=== PATIENT | male | born 1965 | race Caucasian/White ===

== ENCOUNTER → 2021-09-22 | Outpatient (CLI) | payer OTHER ==
[2021-09-22 10:19] VITALS: BP 153/103
== END ==
LOC: CARD 10:00
PROVIDERS: ATTEND Nurse Practitioner Family
DX: I25.10 Atherosclerotic heart disease of native coronary artery without angina pectoris (principal)
CPT/HCPCS: 93017

== ENCOUNTER 2021-12-26 14:10 | Emergency (ER) | payer OTHER ==
[~2021-12-26] VITALS: Ht 183 cm; Wt 118.0 kg
--- NOTE | 2021-12-26 14:51 | ED Syncope ---
General Chief Complaint: Neuro-Stroke Like Symptoms Stated Complaint: STROKE LIKE SYMPTOMS Nursing Triage Note: PT TO ER BY EMS BROUGHT STRAIGHT TO CT WITH CC OF STROKE S/S. PT FELL AT HOME WITH RT SIDE WEAKNESS, SLURRED SPEECH AND CONFUSION. EMS STATED S/S WERE GETTING BETTER IN ROUTE. LAST KNOWN WELL 1330. SAME THING HAPPENED 2 WKS AGO BUT PT WAS NOT CHECKED OUT. HX OF HYPERTENSION AND AMI WITH 2 STENTS. BRUISE ON FOREHAED THAT WAS NOT THERE PRIOR TO FALL TODAY. Source of Information: Patient Exam Limitations: No Limitations History of Present Illness Date Seen by Provider: Dec 26, 2021 Time Seen by Provider: 14:30 Initial Comments Patient is a 56-year-old who presents to the emergency department by ambulance today after syncopal episode at home. Patient according to EMS was found at home after having fallen. He lives with his mother. She heard him fall and immediately called the ambulance. Unknown length of time of unconsciousness however when EMS arrived they found complete right hemiparesis and significant right-sided facial droop. He had dysarthria on arrival but these symptoms improved to resolution prior to the time he got to the emergency department. No prior history of stroke. The patient had acute IN in 2014 with subsequent stent placement. He is a patient of Dr. Degroot. He denies any antecedent symptoms. He cannot recall exactly what he was doing just prior to this event. He does state that he had a syncopal episode about a month ago possibly but he did not seek medical attention at that time. He denies headache, vision changes, speech difficulty or swallowing difficulty. No current unilateral weakness, numbness or tingling. No loss of bowel or bladder function. No pain is reported. No recent fevers, chills, cough or congestion. No GI or complaints. No rashes, joint pain or swelling. He states that for the past "couple of years" he has noticed when he walks he tends to walk to the right side. He states he has mentioned this to doctors but nobody has evaluated it. No unexplained weight loss or weight gain, no night sweats. Patient is not a diabetic. His only medications are for heart disease. Former smoker, quit in 2015. Admits to marijuana use daily. All other review of systems reviewed and negative except as stated. (patient later voiced concerns about possible prostate issues, he is concerned about some rash and swelling in the groin as well). Timing/Prior Episodes: Recent History Symptoms Prior to Episode: Unknown Precipitating Factors: Other (unknown) Current Symptoms: Back to Normal Allergies and Home Medications Patient Home Medication List Home Medication List Reviewed: Yes Review of Systems Constitutional: see HPI EENTM: no symptoms reported Respiratory: no symptoms reported Cardiovascular: no symptoms reported Gastrointestinal: other (occasionally has blood when he wipes after BM) Musculoskeletal: no symptoms reported Skin: no symptoms reported Psychiatric/Neurological: Other (reports "walking to the right") All Other Systems Reviewed Negative Unless Noted: Yes Physical Exam Vital Signs Vital Signs - First Documented 12/26/21 14:35 Temp 36.9 Pulse 97 Resp 20 B/P (MAP) 137/60 (85) Pulse Ox 92 O2 Delivery Room Air Capillary Refill : Less Than 3 Seconds Height, Weight, BMI Height: '" Weight: lbs. oz. kg; 35.00 BMI Method: General Appearance: No Apparent Distress, WD/WN HEENT: PERRL/EOMI, TMs Normal, Normal ENT Inspection, Pharynx Normal, Moist Mucous Membranes Neck: Full Range of Motion, Normal Inspection, Non Tender Cardiovascular: Regular Rate, Rhythm, Normal Peripheral Pulses Respiratory: Lungs Clear, Normal Breath Sounds, No Accessory Muscle Use, No Respiratory Distress Gastrointestinal: Normal Bowel Sounds, Non Tender, Soft Extremities: Normal Capillary Refill, Normal Inspection, Normal Range of Motion, Non Tender, No Calf Tenderness Neurologic/Psychiatric: Alert, Oriented x3, No Motor/Sensory Deficits, Normal Mood/Affect, director pharmacovigilance II-XII Norm as Tested; No EOM Palsy, No Facial Droop Cranial Nerves: Normal Hearing, Normal Speech, PERRL Coordination/Gait: Normal Finger to Nose, Negative Romberg's Sign, Other (gait not tested) Motor/Sensory: No Motor Deficit, No Sensory Deficit, No Pronator Drift Skin: Normal Color, Warm/Dry, Other (ecchymoses/contusion - mid forehead) Progress/Results/Core Measures Results/Orders Lab Results Laboratory Tests Test 12/26/21 14:39 12/26/21 14:40 Range/Units Glucometer 121 H 70-110 MG/DL White Blood Count 6.9 4.3-11.0 10^3/uL Red Blood Count 4.20 L 4.30-5.52 10^6/uL Hemoglobin 12.7 L 13.3-17.7 g/dL Hematocrit 37 L 40-54 % Mean Corpuscular Volume 87 80-99 fL Mean Corpuscular Hemoglobin 30 25-34 pg Mean Corpuscular Hemoglobin Concent 35 32-36 g/dL Red Cell Distribution Width 12.4 10.0-14.5 % Platelet Count 210 130-400 10^3/uL Mean Platelet Volume 8.9 L 9.0-12.2 fL Immature Granulocyte % (Auto) 0 % Neutrophils (%) (Auto) 61 42-75 % Lymphocytes (%) (Auto) 25 12-44 % Monocytes (%) (Auto) 9 0-12 % Eosinophils (%) (Auto) 4 0-10 % Basophils (%) (Auto) 1 0-10 % Neutrophils # (Auto) 4.2 1.8-7.8 X 10^3 Lymphocytes # (Auto) 1.7 1.0-4.0 X 10^3 Monocytes # (Auto) 0.6 0.0-1.0 X 10^3 Eosinophils # (Auto) 0.3 0.0-0.3 10^3/uL Basophils # (Auto) 0.1 0.0-0.1 10^3/uL Immature Granulocyte # (Auto) 0.0 0.0-0.1 10^3/uL Prothrombin Time 13.7 12.2-14.7 SEC INR Comment 1.0 0.8-1.4 Activated Partial Thromboplast Time 26 24-35 SEC D-Dimer 0.34 0.00-0.49 UG/ML Sodium Level 139 135-145 MMOL/L Potassium Level 3.6 3.6-5.0 MMOL/L Chloride Level 104 98-107 MMOL/L Carbon Dioxide Level 24 21-32 MMOL/L Anion Gap 11 5-14 MMOL/L Blood Urea Nitrogen 12 7-18 MG/DL Creatinine 1.11 0.60-1.30 MG/DL Estimat Glomerular Filtration Rate 78 BUN/Creatinine Ratio 11 Glucose Level 128 H 70-105 MG/DL Calcium Level 9.0 8.5-10.1 MG/DL Corrected Calcium 9.0 8.5-10.1 MG/DL Total Bilirubin 0.9 0.1-1.0 MG/DL Aspartate Amino Transf (AST/SGOT) 21 5-34 U/L Alanine Aminotransferase (ALT/SGPT) 28 0-55 U/L Alkaline Phosphatase 70 40-136 U/L Troponin I < 0.028 <0.028 NG/ML Total Protein 6.9 6.4-8.2 GM/DL Albumin 4.0 3.2-4.5 GM/DL My Orders Orders - TRINY GARCIA MD Cbc With Automated Diff (12/26/21 14:25) Protime With Inr (12/26/21 14:25) Partial Thromboplastin Time (12/26/21 14:25) Comprehensive Metabolic Panel (12/26/21 14:25) Fibrin Degradation Products (12/26/21 14:25) Troponin I Agatha (12/26/21 14:25) Ua Culture If Indicated (12/26/21 14:25) Chest 1 View, Ap/Pa Only (12/26/21 14:25) Ekg Tracing (12/26/21 14:25) Nothing By Mouth (12/26/21 Lunch) Accucheck Stat ONCE (12/26/21 14:25) Ed Iv/Invasive Line Start (12/26/21 14:25) Ed Iv/Invasive Line Start (12/26/21 14:25) Vital Signs Stroke Patient Q15M (12/26/21 14:25) Ct Head Wo-R/O Stroke (12/26/21 14:25) O2 (12/26/21 14:25) Intake & Output 06,14,22 (12/26/21 14:25) Monitor-Rhythm Ecg Trace Only (12/26/21 14:25) Dysphagia Screening Tool Q10MX1 (12/26/21 14:25) Post Thrombolytic Adminstratio (12/26/21 14:25) Lipid Panel (12/27/21 06:00) Vital Signs/I&O 12/26/21 14:35 Temp 36.9 Pulse 97 Resp 20 B/P (MAP) 137/60 (85) Pulse Ox 92 O2 Delivery Room Air Blood Pressure Mean: 85 Progress Progress Note : Time: 15:49 Progress Note Patient advised of the findings on his CAT scan as well as all of his laboratory results. 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 He chose to make a phone call and discuss things with his mother. Nurse advised me a short while later that the patient was willing to be transferred for further evaluation. I called [facility] in [place] and spoke with Dr. Paulo Andrade with neurosurgery. He states he would be happy to see the patient, evaluate him and proceed as necessary. I then spoke with Dr. Fu in the emergency department. He kindly accepts the patient in transfer. Patient will go ACLS. Initial ECG Impression Date: Dec 26, 2021 Initial ECG Impression Time: 14:47 Initial ECG Rate: 98 Initial ECG Rhythm: Normal Sinus Initial ECG Intervals: Normal Initial ECG Intervals LA 153 QRS 108 QTc 410 Comment Q waves inferiorly Diagnostic Imaging Diagonstic Imaging: CT Comments [facility] [place], [place] NAME: MARLON SMITH [facility] REC#: [id number] PT STATUS: REG ER : 1965 PHYSICIAN: TRINY GARCIA MD ADMIT DATE: 12/26/21/ER Draft Date of Exam:12/26/21 CT HEAD WO-R/O STROKE PROCEDURE: CT head wo r/o stroke. TECHNIQUE: Multiple contiguous axial images were obtained through the brain without the use of intravenous contrast. Auto Exposure Controls were utilized during the CT exam to meet ALARA standards for radiation dose reduction. INDICATION: Right-sided weakness and slurred speech as well as right facial droop. No prior studies are available for comparison. There is a mass that appears to originate from the sella/suprasellar location. Masses at the midline and extends towards the left into the left middle cranial fossa. The mass measures proxy 4.7 cm transverse by 3.7 cm AP. Ventricular size is normal. There is no sulcal effacement. No midline shift. No acute intra-axial or extra-axial hemorrhage is detected. Cisterns are patent. Visualized paranasal sinuses are clear apart from an a mucous retention cyst or polyp in the left maxillary sinus as well as the sphenoid sinus. IMPRESSION: Sellar/suprasellar mass, as described. Further evaluation with MRI with and without contrast is recommended. No hydrocephalus, midline shift or acute hemorrhage is detected. Results were called to the emergency department prior to this dictation. Dictated on workstation # [id number] Dict: 12/26/21 1439 Trans: 12/26/21 1450 CVB [id number] Interpreted by: SANJUANITA CHATTERJEE MD Electronically signed by: Diagonstic Imaging: CT Comments [facility] [place], [place] NAME: MARLON SMITH [facility] REC#: [id number] PT STATUS: REG ER : 1965 PHYSICIAN: TRINY GARCIA MD ADMIT DATE: 12/26/21/ER Draft Date of Exam:12/26/21 CHEST 1 VIEW, AP/PA ONLY Indication: Right-sided weakness and slurred speech. Time of Exam: 2:36 PM No prior studies are available for comparison. Findings: The heart size is normal. The pulmonary vascularity is unremarkable. The lungs are clear. No infiltrate, effusion or pneumothorax is detected. Impression: No acute cardiopulmonary process is detected. Dictated on workstation # [id number] Dict: 12/26/21 1445 Trans: 12/26/21 1450 CVB [id number] Interpreted by: SANJUANITA CHATTERJEE MD Electronically signed by: Departure Impression Primary Impression: Syncope Qualified Codes: R55 - Syncope and collapse Additional Impressions: Brain tumor Contusion of forehead Qualified Codes: S00.83XA - Contusion of other part of head, initial encounter Disposition: 02 XFER SHT-TRM HOSP Condition: Stable Transfer Transfer Reason: Exceeds level of care Time Spoke to Accepting Phy: 15:48 Transfer Progress Notes Discussed with Dr Paulo Andrade (NS) as well as Dr Fu (ED) Transfer Facility: [facility] Method of Transfer: EMS Images Head/Face 1 - Ecchymosis TRINY GARCIA MD Dec 26, 2021 14:51
[2021-12-26 14:54] LABS: BASOPHILS # (AUTO) 0.1 10^3/uL (0.0-0.1); BASOPHILS % (AUTO) 1 % (0-10); EOSINOPHILS # (AUTO) 0.3 10^3/uL (0.0-0.3); EOSINOPHILS % (AUTO) 4 % (0-10); HEMATOCRIT 37 % (40-54); HEMOGLOBIN 12.7 g/dL (13.3-17.7); LYMPHOCYTES # (AUTO) 1.7 X 10^3 (1.0-4.0); LYMPHOCYTES % (AUTO) 25 % (12-44); MEAN CORPUSCULAR HEMOGLOBIN 30 pg (25-34); MEAN CORPUSCULAR HGB CONC 35 g/dL (32-36); MEAN CORPUSCULAR VOLUME 87 fL (80-99); MEAN PLATELET VOLUME 8.9 fL (9.0-12.2); MONOCYTES # (AUTO) 0.6 X 10^3 (0.0-1.0); MONOCYTES % (AUTO) 9 % (0-12); NEUTROPHILS # (AUTO) 4.2 X 10^3 (1.8-7.8); NEUTROPHILS % (AUTO) 61 % (42-75); PLATELET COUNT 210 10^3/uL (130-400); WHITE BLOOD COUNT 6.9 10^3/uL (4.3-11.0)
[2021-12-26 15:00] LABS: CHLORIDE 104 MMOL/L (98-107); POTASSIUM 3.6 MMOL/L (3.6-5.0); SODIUM 139 MMOL/L (135-145)
[2021-12-26 15:03] LABS: GLUCOSE 128 MG/DL (70-105); TOTAL PROTEIN 6.9 GM/DL (6.4-8.2)
[2021-12-26 15:04] LABS: CARBON DIOXIDE 24 MMOL/L (21-32)
[2021-12-26 15:05] LABS: BILIRUBIN,TOTAL 0.9 MG/DL (0.1-1.0); FIBRIN DEGRADATION PRODUCTS 0.34 UG/ML (0.00-0.49); PROTHROMBIN TIME PATIENT 13.7 SEC (12.2-14.7)
[2021-12-26 15:06] LABS: ALKALINE PHOSPHATASE 70 U/L (40-136)
[2021-12-26 15:07] LABS: CREATININE SERUM 1.11 MG/DL (0.60-1.30); GFR ESTIMATED 78
[2021-12-26 15:08] LABS: BUN/CREATININE RATIO 11
[2021-12-26 15:09] LABS: ALANINE AMINOTRANSFERASE 28 U/L (0-55)
[2021-12-26] MEDS ORDERED: MAGNESIUM (15:58)
[2021-12-26] MEDS ORDERED: LISINOPRIL (15:58)
[2021-12-26] MEDS ORDERED: ASPI-999 PO (15:58)
[2021-12-26] MEDS ORDERED: ATORVASTATIN (15:58)
[2021-12-26] MEDS ORDERED: B-12 (15:58)
[2021-12-26] MEDS ORDERED: AMLODIPINE (15:58)
[2021-12-26] MEDS ORDERED: FLOMAX (15:58)
[2021-12-26] MEDS ORDERED: CARVEDILOL (15:58)
[2021-12-26] MEDS ORDERED: ATOR80TA76 PO (16:13)
[2021-12-26] MEDS ORDERED: CARV6.252 PO (16:13)
[2021-12-26] MEDS ORDERED: LISI40TA9 PO (16:13)
[2021-12-26] MEDS ORDERED: TMSL.4C PO (16:13)
[2021-12-26] MEDS ORDERED: AMLO2.5T4 PO (16:13)
[2021-12-26 16:30] LABS: BILIRUBIN,URINE NEGATIVE (NEGATIVE); CLARITY,URINE CLEAR; COLOR,URINE YELLOW; GLUCOSE, URINE (UA) NEGATIVE (NEGATIVE); KETONES,URINE TRACE (NEGATIVE); LEUKOCYTE ESTERASE ,URINE NEGATIVE (NEGATIVE); NITRITE,URINE NEGATIVE (NEGATIVE); PROTEIN,URINE 1+ (NEGATIVE)
[2021-12-26 16:41] LABS: BACTERIA,URINE TRACE /HPF; HYALINE CASTS, URINE RARE /LPF; SQUAMOUS EPITHELIAL CELL,UR RARE /HPF; WBC,URINE 0-2 /HPF
[2021-12-26 16:54] VITALS: BP 121/89
== END 2021-12-26 16:54 | disposition short-term general hospital (02) ==
LOC: EDUNIT# 14:20 → ER 14:23
DX: S00.83XA Contusion of other part of head, initial encounter (principal); D49.6 Neoplasm of unspecified behavior of brain; R55 Syncope and collapse; Z87.891 Personal history of nicotine dependence; W18.30XA Fall on same level, unspecified, initial encounter; Y92.009 Unspecified place in unspecified non-institutional (private) residence as the place of occurrence of the external cause
CPT/HCPCS: 36415; 70450; 71045; 80053; 81000; 82947; 84484; 85025; 85379; 85610; 85730; 93005; 93041

== ENCOUNTER → 2022-01-07 | Outpatient (CLI) | payer OTHER ==
[~2022-01-07] VITALS: Wt 118.0 kg
[~2022-01-07] MED LIST: AMLO2.5T4 PO; AMLODIPINE; ASPI-999 PO; ATOR80TA76 PO; ATORVASTATIN; B-12; CARV6.252 PO; CARVEDILOL; COSYNTROPIN 0.25 MG/ML (CORTROSYN) VIAL IV NR; FLOMAX; LISI40TA9 PO; LISINOPRIL; MAGNESIUM; TMSL.4C PO
[2022-01-07 08:30] VITALS: BP 138/79
== END ==
LOC: SDC 08:04
PROVIDERS: ATTEND Internal Medicine Endocrinology, Diabetes & Metabolism
DX: D35.2 Benign neoplasm of pituitary gland (principal)
CPT/HCPCS: 36415; 82088; 82533; 96374

== ENCOUNTER → 2022-05-24 | Outpatient (CLI) | payer OTHER ==
[~2022-05-24] MED LIST changes: -COSYNTROPIN 0.25 MG/ML (CORTROSYN) VIAL IV NR; +GADOTERATE 0.5 MMOL/ML (CLARISCAN) 20 ML VIAL IV ONE
--- NOTE | 2022-05-24 18:26 | Diagnostic Imaging Report ---
EXAM: MRI BRAIN PITUITARY W/WO CON INDICATION: Pituitary mass. COMPARISON: CT head without contrast 12/26/2021. Outside MRI brain without and with IV contrast 12/27/2021. FINDINGS: The lobulated enhancing mass centered in the sella today measures approximately 3.4 x 2.8 x 3.2 cm, previously 4.6 x 3.2 x 4.2 cm when measured in a similar fashion. This mass continues to involve the left cavernous sinus and have mass effect upon the fornices and optic chiasm. The previously seen mass effect upon the hypothalamus and mid brain has improved. There is also less mass effect upon the basilar artery. Mild generalized parenchymal volume loss. Mild nonspecific T2 hyperintensities in the supratentorial white matter compatible with chronic small vessel ischemic change. No other abnormal intracranial enhancement. No restricted water diffusion. No hemosiderin deposition or evidence of intracranial hemorrhage. Normal morphology of the major midline structures, posterior fossa, and cerebellopontine angle. Normal intracranial flow voids. No hydrocephalus or extra-axial fluid collections. The orbits are unremarkable. Mucus retention cyst in the floor of the left maxillary sinus. The mastoids are clear. Normal bone marrow signal. IMPRESSION: Interval decreasing size of the lobulated mass centered in the sella, measurements above. This continues to result in mass effect upon the optic chiasm and fornices and involves the left cavernous sinus. Dictated by: Dictated on workstation # [id number]
== END ==
LOC: RAD 13:27
PROVIDERS: ATTEND Internal Medicine Endocrinology, Diabetes & Metabolism
DX: D35.2 Benign neoplasm of pituitary gland (principal)
CPT/HCPCS: 70553

== ENCOUNTER → 2023-03-11 | Outpatient (CLI) | payer OTHER ==
[~2023-03-11] MED LIST changes: -GADOTERATE 0.5 MMOL/ML (CLARISCAN) 20 ML VIAL IV ONE
--- NOTE | 2023-03-11 15:44 | Diagnostic Imaging Report ---
INDICATION: Back pain AP and lateral views of the lumbar spine are obtained. The lumbar vertebrae are normal in height and alignment. There are small anterior osteophytes throughout the lumbar levels. There is no compression deformity or focal lesion. There is some facet degenerative change at L4-L5 and L5-S1. IMPRESSION: Mild degenerative findings in the lumbar spine with no overt acute abnormality. Dictated by: Dictated on workstation # [id number]
== END ==
LOC: RAD 11:09
PROVIDERS: ATTEND Family Medicine
DX: M47.816 Spondylosis without myelopathy or radiculopathy, lumbar region (principal)
CPT/HCPCS: 72100